=== PATIENT | male | born 1990 | race American Indian/Alaskan Native ===

== ENCOUNTER 2022-04-04 20:30 | Emergency (ER) | payer OTHER ==
[2022-04-04 22:21] VITALS: BP 119/74
[2022-04-05] MEDS ORDERED: ONDANSETRON 4 MG ODT TAB PO ONE (03:25)
[2022-04-05] MEDS ORDERED: oxyCODONE /ACETAMINOPHEN 5-325MG TAB PO ONE (03:25)
[2022-04-05] MEDS ORDERED: IBUPROFEN 600 MG TAB PO ONE (03:25)
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
== END 2022-04-05 05:00 | disposition home or self-care (01) ==
LOC: ED 20:30
DX: S39.012A Strain of muscle, fascia and tendon of lower back, initial encounter (principal); Z79.899 Other long term (current) drug therapy; M62.830 Muscle spasm of back; V89.2XXA Person injured in unspecified motor-vehicle accident, traffic, initial encounter; Y93.89 Activity, other specified; Y92.488 Other paved roadways as the place of occurrence of the external cause; Y99.8 Other external cause status
CPT/HCPCS: 72100; 99283; J3490; Q0162